=== PATIENT | female | born 1980 | race Caucasian/White ===

== ENCOUNTER 2022-10-01 23:57 | Emergency (ER) | payer SELFPAY ==
[~2022-10-01] VITALS: Ht 167.6 cm; Wt 103.0 kg
[2022-10-02 00:01] VITALS: BP 115/75
[2022-10-02] MEDS ORDERED: ONDANSETRON 4MG ODT PO NR (00:02)
[2022-10-02] MEDS ORDERED: LORAZEPAM 0.5MG TABLET PO NR (00:15)
[2022-10-02 00:36] LABS: BASOPHILS % 0.5 % (0.0-2.0); EOSINOPHILS % 0.2 % (0.0-5.0); HEMATOCRIT. 38.2 % (36.0-48.0); HEMOGLOBIN. 13.2 g/dL (12.0-16.0); LYMPHOCYTES % 31.5 % (20.0-50.0); MEAN CORPUSCULAR HEMOGLOBIN 29.5 pg (28.0-32.0); MEAN CORPUSCULAR VOLUME 85.2 fL (81.0-99.0); MONOCYTES % 4.6 % (2.0-8.0); NEUTROPHILS % 63.2 % (40.0-76.0); PLATELET 251 x1000/uL (130-400); RED BLOOD CELL COUNT 4.49 mill/uL (4.2-5.4); RED CELL DISTRIBUTION WIDTH 12.6 % (11.6-14.6)
[2022-10-02 00:46] LABS: PROTHROMBIN TIME 10.7 sec (9.6-11.0)
[2022-10-02 00:48] LABS: CHLORIDE 109 mEq/L (98-107)
[2022-10-02 00:59] LABS: ETHANOL BLOOD < 10 mg/dL
[2022-10-02] MEDS ORDERED: HYDR-3782 MT (01:29)
== END 2022-10-02 01:48 | disposition home or self-care (01) ==
LOC: ER 10-02 00:23
DX: F41.0 Panic disorder [episodic paroxysmal anxiety] (principal); R07.89 Other chest pain
CPT/HCPCS: 36415; 71045; 80053; 80320; 85025; 93005; 99285; G0480